=== PATIENT | male | born 1940 | race Caucasian/White ===

== ENCOUNTER 2017-08-02 10:57 | Day surgery (SDC) | payer MEDICARE, OTHER ==
[2017-08-02] VITALS (9 sets, daily range): BP systolic 128–156; BP diastolic 60–83; PULSE 63–76; TEMP 97.6–98.2
[~2017-08-02] VITALS: Ht 172.7 cm; Wt 83.2 kg
[2017-08-02] MEDS ORDERED: TYLENOL 325MG325 MG PO (11:23)
[2017-08-02] MEDS ORDERED: NORVASC 10MG10 MG PO (11:23)
[2017-08-02] MEDS ORDERED: ASPIRIN 32325 MG/TAB PO (11:24)
[2017-08-02] MEDS ORDERED: NORCO 325 MG-51 TAB PO (11:25)
[2017-08-02] MEDS ORDERED: PRINIVIL40 MG PO (11:25)
[2017-08-03 01:23] VITALS: BP 111/66; PULSE 67; TEMP 97.8
[2017-08-03 06:00] VITALS: BP 113/65; PULSE 66; TEMP 98
[2017-08-04] MEDS ORDERED: PYRIDIUM200 M1 PO (15:20)
== END 2017-08-03 11:00 | disposition home or self-care (01) ==
LOC: SDCO 10:57 → SURG 18:50 → SDCO 08-03 11:00
DX: R31.0 Gross hematuria (principal); N40.0 Benign prostatic hyperplasia without lower urinary tract symptoms; N99.89 Other postprocedural complications and disorders of genitourinary system
CPT/HCPCS: OP; C1769; J0690; J1100; J2270; J2704; J3010; J7120

== ENCOUNTER 2017-08-04 14:08 | Emergency (ER) | payer MEDICARE, OTHER ==
[~2017-08-04] VITALS: Ht 172.7 cm; Wt 84.1 kg
[~2017-08-04 14:08] MED LIST: ASPIRIN 32325 MG/TAB PO; NORCO 325 MG-51 TAB PO; NORVASC 10MG10 MG PO; PRINIVIL40 MG PO; TYLENOL 325MG325 MG PO
[2017-08-04 14:11] VITALS: TEMP 98
[2017-08-04] MEDS ORDERED: PYRIDIUM200 M1 PO (15:20)
[2017-08-04 16:11] LABS: COLLECTION METHOD CATHETER
[2017-08-04 16:22] LABS: MUCOUS Present /lpf; PH 5 (5-8); SQUAMOUS EPITHELIAL None Seen /hpf; URINE APPEARANCE Cloudy; URINE BACTERIA None Seen /hpf; URINE BILIRUBIN Negative (NEGATIVE); URINE BLOOD 3+ (NEGATIVE); URINE COLOR Red; URINE GLUCOSE Negative (NEGATIVE); URINE KETONE Negative (NEGATIVE); URINE LEUKOCYTE ESTERASE Trace (NEGATIVE); URINE NITRATE Negative (NEGATIVE); URINE PROTEIN(semi-quant) 2+ (NEGATIVE); URINE RBC >50 /hpf; URINE UROBILINOGEN Negative (NEGATIVE)
[2017-08-04 17:49] VITALS: BP 147/80; PULSE 75
== END 2017-08-04 17:49 | disposition home or self-care (01) ==
LOC: COL.ER 14:08
PROVIDERS: Emergency Medicine
DX: T83.84XA Pain due to genitourinary prosthetic devices, implants and grafts, initial encounter (principal)